=== PATIENT | female | born 2005 | race Caucasian/White ===

== ENCOUNTER 2025-03-02 20:51 | Emergency (ER) | payer MEDICAID ==
[~2025-03-02] VITALS: Ht 160 cm; Wt 84.5 kg
[2025-03-02 20:57] VITALS: BP 138/79; TEMP 36.9; O2SAT 98
[2025-03-02 21:02] VITALS: PULSE 90; RESP 18; O2SAT 99
[2025-03-02 22:30] LABS: CLARITY URINE CLEAR (CLEAR); COLOR URINE YELLOW (YELLOW); GLUCOSE URINE NEGATIVE (NEGATIVE); KETONES URINE TRACE (NEGATIVE); LEUKOCYTE ESTERASE URINE 2+ (NEGATIVE); NITRITE URINE NEGATIVE (NEGATIVE); OCCULT BLOOD URINE TRACE (NEGATIVE); PH URINE 5.5 (4.5-8.0); PROTEIN URINE TRACE (NEGATIVE); SPECIFIC GRAVITY URINE 1.025 (1.005-1.030)
[2025-03-02 22:43] LABS: BACTERIA URINE 1+; SQUAMOUS EPITHELIAL CELL URINE 1+ /lpf (RARE/1+)
[2025-03-02] MEDS ORDERED: NITR-87 MT (23:12)
== END 2025-03-02 23:35 | disposition home or self-care (01) ==
LOC: ER 20:51
DX: N39.0 Urinary tract infection, site not specified (principal); Z79.899 Other long term (current) drug therapy
CPT/HCPCS: 81003; 81025; 99283